=== PATIENT | male | born 1945 | race African-American/Black ===

== ENCOUNTER → 2019-12-24 09:50 | Day surgery (SDC) | payer MEDICARE, MEDICAID ==
[~2019-12-24 09:50] MED LIST: Diazepam TAB(*) 5 MG PO PRN; Lidocaine 1% INJ* 10 MG/ML 30 ML SDV ONE; Midazolam* 1 MG/ML 5 ML VIAL (5 MG) ONE; ceFAZolin 1 GM/10 ML flush(*) SYRINGE for pocket flush (cardiology) FLUSH ONE; ceFAZolin 2 GM in NS 100 ml - ONCE (Pharmacy Admix) IVPB ONE; fentaNYL* 50 MCG/ML 2 ML VIAL (100 MCG VIAL) ONE
[2019-12-24 17:16] VITALS: BP 132/86
--- NOTE | 2019-12-25 21:34 | OP ---
DATE OF OPERATION: 12/24/19 - [facility] CATH DATE OF : 45 SURGEON: Rip Ramos MD ANESTHESIA: Local anesthesia with conscious sedation. PRE-OP DIAGNOSES: 1. Ischemic cardiomyopathy. 2. ICD at end of life. POST-OP DIAGNOSES: 1. Ischemic cardiomyopathy. 2. ICD at end of life. OPERATIVE PROCEDURE: Biventricular ICD generator change. INDICATIONS: The patient is a gentleman with a history of ischemic cardiomyopathy, history of ICD implantation in March of 2011. The patient was lost to followup. I had seen the patient recently in the office and his ICD was at end of life, there was no battery life left in the device. Generator change was recommended. ESTIMATED BLOOD LOSS: Nil. COMPLICATIONS: None. DESCRIPTION OF PROCEDURE: The patient was brought to the procedure room in a fasting state. Informed consent had been obtained prior to the procedure. All labs were reviewed. The patient was placed supine on the procedure table. His left deltopectoral area was cleaned and draped in usual fashion. 1% lidocaine was used for local anesthesia. A 4.5-cm incision was made across the previous incision line. Blunt dissection was carried down to the fibrous sheath. The fibrous sheath was opened and the ICD was removed from the pocket. The ICD was detached from the atrial, ventricular and left ventricular lead and removed from the table. The pocket was flushed with antibiotic infused normal saline. A new generator was attached appropriately to the leads. The surgical incision was closed in 3 layers. The patient tolerated the procedure well and no complications. Explanted device is a [employer], model [id number], serial #[id number]. The new implanted device is a [employer], model [id number], serial #[id number]. [id number]/[facility] #: [id number] [facility]
== END | disposition home or self-care (01) ==
LOC: CHICATH 09:50
PROVIDERS: ATTEND Specialist
DX: Z45.02 Encounter for adjustment and management of automatic implantable cardiac defibrillator (principal); I25.5 Ischemic cardiomyopathy; I50.9 Heart failure, unspecified; Z87.891 Personal history of nicotine dependence; I69.351 Hemiplegia and hemiparesis following cerebral infarction affecting right dominant side; E11.9 Type 2 diabetes mellitus without complications; E78.5 Hyperlipidemia, unspecified; Z79.84 Long term (current) use of oral hypoglycemic drugs
CPT/HCPCS: 33264; 88300; 99156; 99157; C1882; J0690; J2250; J3010